=== PATIENT | male | born 2000 | race Caucasian/White ===

== ENCOUNTER 2025-08-11 10:43 | Emergency (ER) | payer BC, SELFPAY ==
[2025-08-11 10:54] VITALS: BP 141/103
--- NOTE | 2025-08-11 11:40 | ED.GENMED ---
History of Present Illness
General
Chief Complaint: Anxiety
Source: patient and family
Exam Limitations: none
Time Seen by Provider: 08/11/25 11:22
History of Present Illness
History of Present Illness:
24yoM with a history of anxiety presenting with his parents for evaluation of anxiety. Patient reports being extremely anxious over the past 3 days. He is anxious to the point that it is making him nauseous and he is having vomiting. He also has
intermittent bouts of diaphoresis. He has had all the symptoms in the past with his anxiety but it typically gets better faster. He has been having trouble taking his medications due to his symptoms. He takes Effexor, gabapentin, and propranolol.
He was able to keep down the medications this morning. He is worried that he is dehydrated because he is experiencing muscle cramping and dark urine and decided to come to the ED for evaluation. He denies any chest pain, shortness of breath,
abdominal pain. He recently switched insurances and no longer has a therapist or psychiatrist that he sees.
Phy Exam
General Physical Exam
General Presentation: well appearing and no apparent distress
General Skin: warm and dry
General Habitus: normal
General Mental: alert
ENT Exam
ENT Exam: normocephalic
Cardiovascular Exam
Cardiovascular Exam: regular rate/rhythm and no murmur
Pulmonary Exam
Pulmonary Exam: lungs clear, no respiratory distress, no rales, no crackles, no rhonchi and no wheezing
Gastrointestinal Exam
Gastrointestinal Exam: non tender, soft and non distended
Neurological Exam
Neurological Exam: alert
[place] Coma Scale
Eye Opening: Spontaneous
Verbal Response: Oriented
Motor Response: Obeys Commands
GCS Total Score: 15
Skin Exam
Skin Exam: normal color and warm/dry
Psychiatric Exam
Psychiatric Exam: anxious and other (Anxious. Cooperative during assessment. No signs of psychosis. No SI.)
Course
Orders/Labs/Results
Orders:
Orders
08/11/25 11:37
0.9% Sodium Chloride 1000 ml [Nss] 1,000 ml IV BOLUS
Lorazepam [Ativan] 1 mg IV NOW STA
Ondansetron Injectable [Zofran] 4 mg IV NOW STA
08/11/25 11:49
Complete Blood Count/With Diff Urgent
Comprehensive Metabolic Panel Urgent
Magnesium Urgent
TSH Reflex To Free T4 Urgent
08/11/25 11:56
Crisis Consult Urgent
Reason for Consult: anxiety
Abnormal Lab Results
08/11/25
11:49
MCH 31.5 H pg
(27.0-31.0)
Neutrophils % 75.4 H %
(42.2-75.2)
Lymphocytes % 15.8 L %
(20.5-51.1)
Chloride 95 L mmol/L
(98-107)
Carbon Dioxide 32 H mmol/L
(22-30)
Calcium 10.3 H mg/dl
(8.4-10.2)
Total Bilirubin 1.5 H mg/dl
(0.2-1.3)
Total Protein 8.8 H g/dl
(6.3-8.2)
Albumin 5.5 H g/dl
(3.5-5.0)
08/11/25 11:49
08/11/25 11:49
Vital Signs
Initial and Last Documented VS:
Initial Vital Signs
Temp Pulse Resp BP Pulse Ox
98.3 F 90 18 141/103 100
08/11/25 10:54 08/11/25 10:54 08/11/25 10:54 08/11/25 10:54 08/11/25 10:54
Last Documented Vital Signs
Temp Pulse Resp BP Pulse Ox
98.2 F 84 16 136/74 99
08/11/25 14:00 08/11/25 14:00 08/11/25 14:00 08/11/25 14:00 08/11/25 14:00
MDM/Problems Addressed
Differential Diagnosis Includes:
24yoM here with uncontrolled anxiety for the past 3 days that is causing him to have nausea and vomiting. Believes he is dehydrated. He is hypertensive with otherwise normal vitals. He is well appearing in no distress. Abdominal exam is benign.
Differential diagnosis includes but is not limited to: Anxiety, dehydration, thyroid dysfunction
Initial ED plan: Check CBC, CMP, magnesium, and TSH. IV Zofran, 1 mg IV Ativan, and fluid bolus for symptoms. Will consult crisis.
*Pulse Oximetry
SaO2: 100
Oxygen Mode of Delivery: Room air
Patient hypoxic: no
*Critical Care Note
Total Time (30-74mins, 75-104mins- exclusive of procedures): Not Applicable
Update Note
Update Note:
Chloride 95 suggesting mild dehydration. Renal function normal. TSH within normal limits. Crisis evaluated patient and outpatient resources were provided. He is feeling significantly improved on reassessment and is tolerating p.o. intake. No
indication for hospitalization. Prescription for Zofran provided. He was advised to follow-up with his PCP and ED return precautions reviewed. Parents in agreement with plan and patient was discharged in stable condition.
ED Attending Note
-
Portions of this chart may have been created with voice recognition software.� Occasional wrong word or��sound alike� substitutions may have occurred due to the inherent limitations of voice recognition software.
Discharge Plan
Departure
Patient Disposition: Home (Routine Discharge)
Date of Disposition: 08/11/25
Time of Disposition: 14:08
Patient with high blood pressure during this ER visit?: Yes
Discharge Problem:
Anxiety, Nausea and vomiting
Instructions: Anxiety, Adult (DC)
Prescriptions:
New
ondansetron 4 mg tablet,disintegrating
4 mg PO Q6H PRN (Reason: nausea and vomiting) Qty: 20 0RF
Referrals:
Ann Sandoval PA-C [Family Provider, Family Practice]
Stand Alone Forms: Return to Work
Activity Restrictions/Additional Instructions:
Take Zofran as needed for nausea. Drink plenty of fluids and stay hydrated.
Please follow-up with your family doctor in the outpatient mental health resources provided. Return to the ER with any new or worsening symptoms.
Interventions
Interventions:
*Risk Screen - Suicide Last Done: 08/11/25 10:54
*General Assessment Last Done: 08/11/25 10:54
*Neglect/Abuse Screening Last Done: 08/11/25 10:54
[facility] Risk Assessment Tool Last Done: 08/11/25 10:43
*Nursing Disposition Last Done: 08/11/25 14:19
BI-Fpvtle-Ifdwasfvnq Assessment Last Done: 08/11/25 12:06
ED-Psychological Assessment Last Done: 08/11/25 12:06
Discharge Date and Time
Discharge Date/Time: 08/11/25 14:20
Print Language: ITALIAN
[2025-08-11 11:54] VITALS: BMI 25.1
[2025-08-11] MEDS: NSS 1000 IV (11:54)
[2025-08-11] MEDS: ATIVAN 1 MG IV (11:55)
[2025-08-11] MEDS: ZOFRAN 4 MG IV (11:55)
[2025-08-11 12:02] LABS: Hematocrit 47.8 % (39.0-52.0); Hemoglobin 17.4 g/dL (13.0-18.0); Mean Corp Hgb Conc. 36.4 g/dL (33.0-37.0); Mean Corpuscular Volume 86.6 fL (80.0-94.0); Nucleated Red Blood Cells % 0 % (-); Platelet Count 255 10^3/uL (130-400); Red Cell Dist. Width 11.8 % (11.5-14.5)
[2025-08-11 12:14] LABS: ALT (SGPT) 38 U/L (0-50); AST (SGOT) 33 U/L (17-59); Albumin 5.5 g/dl (3.5-5.0); Alkaline Phosphatase 77 U/L (38-126); Blood Urea Nitrogen 19 mg/dl (9-20); Calcium 10.3 mg/dl (8.4-10.2); Carbon Dioxide 32 mmol/L (22-30); Chloride 95 mmol/L (98-107); Estimated Creatinine Clearance 102 ml/min; Glucose 94 mg/dl (70-99); Magnesium 1.7 mg/dl (1.6-2.3); Potassium 4.5 mmol/L (3.5-5.1); Sodium 137 mmol/L (135-145); Total Protein 8.8 g/dl (6.3-8.2); eGFR > 60.00
[2025-08-11 14:00] VITALS: BP 136/74
== END 2025-08-11 14:20 | disposition home or self-care (01) ==
LOC: EMR 10:43
PROVIDERS: Physician Assistant; EMERGENCY PHYSICIAN Student in an Organized Health Care Education/Training Program; FAMILY PHYSICIAN Physician Assistant
DX: F41.9 Anxiety disorder, unspecified (principal); R11.2 Nausea with vomiting, unspecified
CPT/HCPCS: 96374; 96375; 96361; 99284; 80053; 83735; 84443; 85025